=== PATIENT | male | born 1970 | race African-American/Black ===

== ENCOUNTER 2025-04-11 10:58 | Emergency (ER) | payer BC, MEDICAID, SELFPAY ==
--- NOTE | 2025-04-11 11:13 | ED.GENMED ---
History of Present Illness
General
Chief Complaint: Catheter/Tube Problem
Source: patient
Exam Limitations: none
Time Seen by Provider: 04/11/25 11:01
Nursing documentation reviewed up to this point in time: agreed with
History of Present Illness
History of Present Illness:
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 Patient reports he had recent below the knee
amputation in [place] and is presently rehabbing in [facility].
Nurse at [place] reports pt has been there for past several weeks. Pt is receiving IV antibx IV 2 grams ceftriazone . He last had a dose yesterday in the am.
Patient presents awake alert he is a poor historian has no complaints at this time.
Phy Exam
General Physical Exam
General Presentation: no apparent distress
General age: appears stated age
General Skin: warm and dry
General Habitus: normal
General Mental: alert
General Hydration: appears well hydrated
Cardiovascular Exam
Cardiovascular Exam: regular rate/rhythm, no murmur and normal peripheral pulses
Pulmonary Exam
Pulmonary Exam: lungs clear and other (PICC line in right upper chest intact no drainage bleeding or erythema)
Neurological Exam
Neurological Exam: alert and oriented x3
Musculoskeletal Exam
Musculoskeletal Exam: full ROM and other (Right BKA with dressing in place)
Skin Exam
Skin Exam: normal color and warm/dry
Psychiatric Exam
Psychiatric Exam: normal mood/affect
Sepsis
Sepsis Screening
Sepsis Assessment: Sepsis Ruled Out
Sepsis Screen
Sepsis Screen: Sepsis Ruled Out
Date: 04/11/25
Time: 16:27
Course
Orders/Labs/Results
Orders:
Orders
04/11/25 11:52
Alteplase [Cathflo/Activase] 2 mg INTRACATH NOW STA
Vital Signs
Initial and Last Documented VS:
Initial Vital Signs
Temp
98.1 F
04/11/25 11:09
Last Documented Vital Signs
Temp Pulse Resp BP Pulse Ox
98.1 F 92 20 133/85 99
04/11/25 11:09 04/11/25 14:00 04/11/25 14:00 04/11/25 14:00 04/11/25 14:00
MDM/Problems Addressed
Differential Diagnosis Includes:
Not limited to PICC 9 malfunction
MDM/Problems Addressed:
IV team was able to get PICC line functioning. IV nurse was able to change the PICC line caps And PICC line successfully flushed. Patient stable to be discharged back to [facility].
*Pulse Oximetry
SaO2: 99
Oxygen Mode of Delivery: Room air
Patient hypoxic: no
*Critical Care Note
Total Time (30-74mins, 75-104mins- exclusive of procedures): Not Applicable
ED Attending Note
-
Portions of this chart may have been created with voice recognition software.� Occasional wrong word or��sound alike� substitutions may have occurred due to the inherent limitations of voice recognition software.
Discharge Plan
Departure
Patient Disposition: Shelter/SNF
Date of Disposition: 04/11/25
Time of Disposition: 14:18
Patient with high blood pressure during this ER visit?: No
Condition: Fair
Covid-19: Not Applicable
Discharge Problem:
PICC line malfunction
Prescriptions:
No Action
acetaminophen 325 mg Tablet
650 mg PO Q6H PRN (Reason: fever/mild pain)
atorvastatin 20 mg Tablet
20 mg PO QPM
ceftriaxone 2 gram Recon Soln
2 g IV DAILY
Rx Instructions:
for 22 days starting 03/31/25
ergocalciferol (vitamin D2) [Vitamin D2] 10 mcg (400 unit) Tablet
10 mcg PO DAILY
melatonin 3 mg Tablet
3 mg PO HS
amitriptyline 25 mg Tablet
25 mg PO HS
magnesium hydroxide [Milk of Magnesia] 400 mg/5 mL Suspension
30 ml PO DAILYPRN PRN (Reason: if no bm in 3 days)
trazodone 100 mg Tablet
100 mg PO HS
sodium bicarbonate 650 mg Tablet
1,300 mg PO BID
bisacodyl 10 mg Suppository
10 mg [place] DAILY PRN (Reason: if mom is ineffective)
Fleet Enema 19-7 gram/118 mL Enema
118 ml [place] DAILYPRN PRN (Reason: is suppository ineffective)
omeprazole 20 mg Capsule,Delayed Release(Dr/Ec)
20 mg PO DAILY
aspirin 81 mg Tablet,Chewable
81 mg PO DAILY
Humalog U-100 Insulin 100 unit/mL Cartridge
3 unit SC AC
insulin glargine 100 unit/mL (3 mL) Insulin Pen
10 unit SC HS
Eucerin Cream
1 applic TOPICAL Q8H PRN (Reason: itchiness)
naloxegol 12.5 mg Tablet
12.5 mg PO DAILY
patiromer calcium sorbitex 8.4 gram Powder In Packet
16.8 g PO DAILY
calcium acetate 667 mg Tablet
667 mg PO AC
Referrals:
Loulou Kuhn MD [Family Provider]
Activity Restrictions/Additional Instructions:
PICC line was flushed and is successfully working.
Interventions
Interventions:
*General Assessment Last Done: 04/11/25 11:47
*Neglect/Abuse Screening Last Done: 04/11/25 11:47
*ED COVID-19 Vaccine History Last Done: 04/11/25 12:30
*ED Influenza Vaccine History Last Done: 04/11/25 12:30
*Risk Screen - Suicide (C-SSRS) Last Done: 04/11/25 12:30
*Nursing Disposition Last Done: 04/11/25 14:52
TN-Jrycme-Wtxuxdamsh Assessment Last Done: 04/11/25 12:30
ED-Male Genitourinary Assessment Last Done: 04/11/25 12:30
Discharge Date and Time
Discharge Date/Time: 04/11/25 14:53
Print Language: GERMAN
[2025-04-11 11:47] VITALS: BP 106/87
[2025-04-11 12:00] VITALS: BP 138/99
[2025-04-11 14:00] VITALS: BP 133/85
== END 2025-04-11 14:53 ==
LOC: EMR 10:58
PROVIDERS: EMERGENCY PHYSICIAN Student in an Organized Health Care Education/Training Program; FAMILY PHYSICIAN Internal Medicine
DX: T82.594A Other mechanical complication of infusion catheter, initial encounter (principal); Y71.2 Prosthetic and other implants, materials and accessory cardiovascular devices associated with adverse incidents; E11.22 Type 2 diabetes mellitus with diabetic chronic kidney disease; N18.9 Chronic kidney disease, unspecified; E11.42 Type 2 diabetes mellitus with diabetic polyneuropathy; Z89.511 Acquired absence of right leg below knee
CPT/HCPCS: 99283; J2997

== ENCOUNTER 2025-04-25 10:39 | Emergency (ER) | payer MEDICAID, SELFPAY ==
[2025-04-25 10:43] VITALS: BP 125/92
--- NOTE | 2025-04-25 11:14 | ED.GENMED ---
History of Present Illness
General
Chief Complaint: Catheter/Tube Problem
Time Seen by Provider: 04/25/25 10:53
History of Present Illness
History of Present Illness:
Patient is a 54-year-old male who is currently undergoing rehab at [facility] for right BKA who was sent in by [facility] for removal of his right tunneled PICC line. He recently finished a course of antibiotics and PICC line was due to be removed
however facility is unable to do this. He has no complaints. No recent fevers.
Phy Exam
General Physical Exam
General Presentation: no apparent distress
General age: appears stated age
General Skin: warm and dry
General Habitus: normal
General Mental: alert
General Hydration: appears well hydrated
Cardiovascular Exam
Cardiovascular Exam: regular rate/rhythm, no murmur and normal peripheral pulses
Pulmonary Exam
Pulmonary Exam: lungs clear and other (PICC line in right upper chest intact no drainage bleeding or erythema)
Neurological Exam
Neurological Exam: alert and oriented x3
Musculoskeletal Exam
Musculoskeletal Exam: full ROM and other (Right BKA with dressing in place)
Skin Exam
Skin Exam: normal color and warm/dry
Psychiatric Exam
Psychiatric Exam: normal mood/affect
Course
Orders/Labs/Results
Orders:
Orders
04/25/25 11:09
Consult Interventional Radiology [IRAD CONSULT] Urgent
Consulting Provider: Mark Goldberg
Was physician already notified: Yes
Procedure being ordered, including laterality if applicable: right PICC removal
Acknowledgement that appropriate orders are entered: Yes
Vital Signs
Initial and Last Documented VS:
Initial Vital Signs
Temp Pulse Resp BP Pulse Ox
36.8 C 110 20 125/92 100
04/25/25 10:43 04/25/25 10:43 04/25/25 10:43 04/25/25 10:43 04/25/25 10:43
Last Documented Vital Signs
Temp Pulse Resp BP Pulse Ox
36.8 C 96 15 122/84 100
04/25/25 14:05 04/25/25 14:56 04/25/25 14:56 04/25/25 14:56 04/25/25 14:50
MDM/Problems Addressed
Differential Diagnosis Includes:
PICC line status post BKA and IV antibiotic course
MDM/Problems Addressed:
Patient presents for PICC line removal. IV team is unable to remove the line as it is tunneled in exits via right chest. Spoke with interventional radiology and remove this line.
*Pulse Oximetry
SaO2: 100
Oxygen Mode of Delivery: Room air
Patient hypoxic: no
*Critical Care Note
Total Time (30-74mins, 75-104mins- exclusive of procedures): Not Applicable
Update Note
Update Note:
PICC line removed by IR without complication. Patient will be discharged back to SNF.
ED Attending Note
-
Portions of this chart may have been created with voice recognition software.� Occasional wrong word or��sound alike� substitutions may have occurred due to the inherent limitations of voice recognition software.
Discharge Plan
Departure
Patient Disposition: Home (Routine Discharge)
Date of Disposition: 04/25/25
Time of Disposition: 15:18
Patient with high blood pressure during this ER visit?: No
Discharge Problem:
PIC line (peripherally inserted central catheter) removal
Prescriptions:
No Action
acetaminophen 325 mg Tablet
650 mg PO Q6H PRN (Reason: fever/mild pain)
atorvastatin 20 mg Tablet
20 mg PO QPM
ceftriaxone 2 gram Recon Soln
2 g IV DAILY
Rx Instructions:
for 22 days starting 03/31/25
ergocalciferol (vitamin D2) [Vitamin D2] 10 mcg (400 unit) Tablet
10 mcg PO DAILY
melatonin 3 mg Tablet
3 mg PO HS
amitriptyline 25 mg Tablet
25 mg PO HS
magnesium hydroxide [Milk of Magnesia] 400 mg/5 mL Suspension
30 ml PO DAILYPRN PRN (Reason: if no bm in 3 days)
trazodone 100 mg Tablet
100 mg PO HS
sodium bicarbonate 650 mg Tablet
1,300 mg PO BID
bisacodyl 10 mg Suppository
10 mg [place] DAILY PRN (Reason: if mom is ineffective)
Fleet Enema 19-7 gram/118 mL Enema
118 ml [place] DAILYPRN PRN (Reason: is suppository ineffective)
omeprazole 20 mg Capsule,Delayed Release(Dr/Ec)
20 mg PO DAILY
aspirin 81 mg Tablet,Chewable
81 mg PO DAILY
Humalog U-100 Insulin 100 unit/mL Cartridge
3 unit SC AC
insulin glargine 100 unit/mL (3 mL) Insulin Pen
10 unit SC HS
Eucerin Cream
1 applic TOPICAL Q8H PRN (Reason: itchiness)
naloxegol 12.5 mg Tablet
12.5 mg PO DAILY
patiromer calcium sorbitex 8.4 gram Powder In Packet
16.8 g PO DAILY
calcium acetate 667 mg Tablet
667 mg PO AC
Referrals:
UNKNOWN - PT DOES,NOT KNOW [Family Provider]
Activity Restrictions/Additional Instructions:
Your PICC line was removed during this emergency room visit by interventional radiology. No complications were reported during the procedure.
Interventions
Interventions:
*General Assessment Last Done: 04/25/25 10:54
*Neglect/Abuse Screening Last Done: 04/25/25 10:54
*ED COVID-19 Vaccine History Last Done: 04/25/25 12:59
*ED Influenza Vaccine History Last Done: 04/25/25 12:59
[facility] Risk Assessment Tool Last Done: 04/25/25 11:53
*Risk Screen - Suicide (C-SSRS) Last Done: 04/25/25 10:54
CY-Jzfaeg-Jxojkjvzcz Assessment Last Done: 04/25/25 10:53
ED-Male Genitourinary Assessment Last Done: 04/25/25 10:53
Discharge Date and Time
Print Language: CHINESE
[2025-04-25 14:05] VITALS: BP 122/82; BP_SYST 101
[2025-04-25 14:50] VITALS: BP 122/84; BP_SYST 96
[2025-04-25 14:56] VITALS: BP 122/84
[2025-04-25 15:32] VITALS: BMI 28.1
== END 2025-04-25 18:38 | disposition home or self-care (01) ==
LOC: EMR 10:39
PROVIDERS: CONSULT PHYSICIAN Radiology Vascular & Interventional Radiology; EMERGENCY PHYSICIAN Emergency Medicine
DX: Z45.2 Encounter for adjustment and management of vascular access device (principal); Z89.511 Acquired absence of right leg below knee
CPT/HCPCS: 99283; 36589